=== PATIENT | female | born 2000 | race Caucasian/White ===

== ENCOUNTER 2021-07-03 21:47 | Emergency (ER) | payer OTHER, SELFPAY ==
[2021-07-03 21:47] VITALS: BP 151/108; PULSE 107; RESP 18; TEMP 36.1; O2SAT 98
--- NOTE | 2021-07-03 22:26 | EDS_ITS ---
HPI History of Present Illness Chief Complaint: Burn Informant: patient Onset/Context/Timing Onset: Hours (7-8) Mechanism/Context: Burn Current Severity: Mild Maximum Severity: Severe Worsened by: palpation Relieved by: leaving alone Associated Symptoms Associated Symptoms: Negative for Parasthesias, Weakness, Loss of function and Inability to ambulate Narrative Narrative: Patient had a work-related injury, she accidentally dropped hot boiling water on her feet sustained dorado. She took ibuprofen earlier, pain was initially pretty severe but now it is very mild and she presents 7 or 8 hours after the injury, after she got off work. She denies any other injury. PFSH PFS Medical History no medical history no medical history Surgical History no surgical history no surgical history Social History Smoking Status: Never smoker ROS ROS ED Constitutional Constitutional ED: Denies chills or fever(s) Musculoskeletal Musculoskeletal: Reports extremity pain; Denies neck pain Integumentary Reports as per HPI and wounds; Denies Abrasions or rash Neurologic Neurologic: Denies paresthesias or weakness EXAM Physical Exam Const Vital Signs: 07/03/21 21:47 Temperature 97 F L Temperature Source Temporal Pulse Rate 107 H Respiratory Rate 18 Blood Pressure 151/108 H Blood Pressure Mean 122 Pulse Ox 98 Oxygen Delivery Method Room Air Positive well nourished and well developed General Appearance ED: well developed and NAD Neck full ROM and supple Back/Spine normal ROM and normal to inspection Neuro oriented x3, no focal motor deficits and no sensory deficits noted Sensorium / Orientation: alert Psych mental status grossly normal and thought process normal Skin Rashes: no rashes Trauma: other Dorado to both feet: Mostly second-degree, right great toe and second toe, on the left involvement is on the peroneal aspect of the foot including the fourth and fifth toes. All bullae are intact, the ones on the left are somewhat tense. All areas are mildly tender. No third or fourth degree involvement. Total body surface area burn involvement 1%. MDM MDM MDM Narrative Medical decision making narrative: These are second-degree dorado. She is not in a lot of pain so I would leave the blisters alone as long as she is able. I discussed cleansing and covering with antibiotic ointment if and when they burst which will probably happen since they are fairly large and on her feet. Given appropriate work restrictions and follow-up. Discharge Plan Triage Chief Complaint: Burn ED Provider: Tom Toams Dx/Rx/DC Orders Clinical Impression: Second degree burn of left foot, Second degree burn of great toe of right foot Instructions: ED Burn, Hot Water Primary Care Provider: Kapil Doherty Referrals: [facility] [GROUP OF PHYSICIANS] - 2 Days for wound check Kapil Doherty DO [Primary Care Provider] - Disposition Disposition: Home, Self Care
== END 2021-07-03 22:58 | disposition home or self-care (01) ==
LOC: ED 22:39
PROVIDERS: Emergency Provider Emergency Medicine; PCP Family Medicine; Visit Provider Emergency Medicine
DX: T25.221A Burn of second degree of right foot, initial encounter (principal); T25.222A Burn of second degree of left foot, initial encounter; X12.XXXA Contact with other hot fluids, initial encounter; Y93.9 Activity, unspecified; Y99.0 Civilian activity done for income or pay; Y92.9 Unspecified place or not applicable; T31.0 Burns involving less than 10% of body surface
CPT/HCPCS: 99283